=== PATIENT | female | born 1995 | race Caucasian/White ===

== ENCOUNTER → 2016-11-03 | Outpatient (CLI) | payer OTHER | END | disposition home or self-care (01) | LOC: LABWHC1 17:09 | PROVIDERS: ATTEND Pediatrics | DX: R30.0 Dysuria (principal) | CPT/HCPCS: 87491; 87591 ==

== ENCOUNTER → 2021-03-20 | Outpatient (CLI) | payer OTHER ==
[2021-03-21 08:17] LABS: Thyroid Peroxidase Antibodies <9.0 U/mL (0.0-33.0)
== END | disposition home or self-care (01) ==
LOC: LABWHC1 15:38
PROVIDERS: ATTEND Nurse Practitioner Family
DX: L50.0 Allergic urticaria (principal)
CPT/HCPCS: 36415; 82785; 85652; 86003; 86038; 86235; 86376; 86618; 86769

== ENCOUNTER 2023-06-06 12:06 | Outpatient (CLI) | payer OTHER ==
[2023-06-06 12:46] VITALS: BP 123/76; PULSE 107; RESP 18; TEMP 98.7
== END 2023-06-06 13:20 | disposition home or self-care (01) ==
LOC: FBPOP 12:06
PROVIDERS: ATTEND Obstetrics & Gynecology Obstetrics
DX: Z53.9 Procedure and treatment not carried out, unspecified reason (principal)
CPT/HCPCS: 59025; 87636; 99213

== ENCOUNTER 2023-08-10 17:25 | Inpatient (IN) | payer OTHER ==
[2023-08-10] MEDS ORDERED: OXYTOCIN 10 UNIT/ML 1 ML VIAL IM PRN (17:36)
[2023-08-10] MEDS ORDERED: METHYLERGONOVINE 0.2 MG/ML 1 ML AMP IM PRN (17:36)
[2023-08-10] MEDS ORDERED: miSOPROStoL 200 MCG TAB PO PRN (17:36)
[2023-08-10] MEDS ORDERED: TRANEXAMIC 1,000 MG/100ML-NACL 1,000 MG in EMPTY BAG 1 BAG IV PRN (17:36)
[2023-08-10] MEDS ORDERED: CARBOPROST TROMETHAMINE 250 MCG/ML 1 ML AMP IM PRN (17:36)
[2023-08-10] MEDS ORDERED: LIDOCAINE 0.5% (PF) 5 MG/ML (50 ML SDV) SQ PRN (17:36)
[2023-08-10] MEDS ORDERED: TERBUTALINE 1 MG/ML VIAL SQ PRN (17:36)
[2023-08-10] MEDS: LACTATED RINGERS 1,000 ML IV SCH (17:52)
[2023-08-10 17:58] LABS: Basophils % (A) 0 %; Eosinophils % (A) 0 %; HCT 37.9 % (34.0-46.0); HGB 12.5 gm/dL (11.4-16.0); Lymphocytes # (A) 1.7 k/uL (1.0-4.8); Lymphocytes % (A) 10 %; MCH 29.9 pg (25.0-35.0); MCV 90.5 fL (80.0-100.0); Mean Platelet Volume 9.1; Monocytes # (A) 0.8 k/uL (0-1.0); Monocytes % (A) 5 %; Neutrophils # (A) 14.4 k/uL (1.3-7.7); Neutrophils % (A) 84 %; Platelet Count 167 k/uL (150-450); RBC 4.19 m/uL (3.80-5.40); RDW 12.7 % (11.5-15.5); WBC 17.1 k/uL (3.8-10.6)
[2023-08-10] MEDS ORDERED: fentaNYL (PF) 50 MCG/ML 5 ML AMP ONE (18:25)
[2023-08-10] MEDS ORDERED: SODIUM CHLORIDE 0.9% 250 ML BAG ONE (18:25)
[2023-08-10] MEDS ORDERED: ROPIVACAINE 5 MG/ML 30 ML VIAL ONE (18:25)
--- NOTE | 2023-08-10 18:45 | P.HPOB ---
History of Present Illness H&P Date: 08/10/23 Chief Complaint: Leaking of fluid, contractions Ms. Holt is a 27 year old at 38 weeks and 3 days with EDC of 08/21/2023 by LMP consistent with 7 week US who presents to labor and delivery with leakage of fluid and contractions. Her has been uncomplicated. The fetus is estimated to be 7 pounds based on a 35w3d growth US. work-up: blood type O positive, antibody screen negative, rubella immune, VDRL non-reactive, HBsAg negative, HIV negative, HCV Ab negative, gonorrhea negative, chlamydia negative, 1 hour GTT wnl, GBS negative. Obstetric history: 1 SAB Past Medical History Past Medical History: No Reported History History of Any Multi-Drug Resistant Organisms: None Reported Past Surgical History: Orthopedic Surgery Smoking Status: Never smoker Medications and Allergies Home Medications Medication Instructions Recorded Confirmed Type Vit No.179/Iron/Folic 1 tab PO ONCE 08/10/23 08/10/23 History [ Tablet] Allergies Allergy/AdvReac Type Severity Reaction Status Date / Time No Known Allergies Allergy Verified 08/10/23 17:36 Exam Intake and Output 08/10/23 08/10/23 08/10/23 06:59 14:59 22:59 Other: Weight 75.296 kg Focused physical exam is performed. This is a healthy-appearing in no apparent distress. Breathing is non-labored. Abdomen is gravid and non-tender. Cervical exam is 6-7 cm, 90% effacement, -1 station. Membranes grossly ruptured per OB Rn. Extremities non-tender and non-edematous. heart tones are Category I and tocometer is graphing contractions every 2-4 minutes. Results Result Diagrams: 08/10/23 17:46 Abnormal Lab Results - Last 24 Hours (Table) 08/10/23 Range/Units 17:46 WBC 17.1 H (3.8-10.6) k/uL Neutrophils # 14.4 H (1.3-7.7) k/uL Assessment and Plan Assessment: 27 year old at 38 weeks and 3 days with SROM and labor Plan: Admit, clear liquid diet, epidural prn, continuous EFM and tocometer, close monitoring of patient. Anticipate vaginal delivery.
[2023-08-10] MEDS: ROPIVACAINE 225 MG, fentaNYL (PF). 450 MCG in SODIUM CHLORIDE 0.9% 171 ML EPIDURAL ONE (19:40)
[2023-08-11] MEDS ORDERED: SIMETHICONE 80 MG CHEWABLE PO PRN (00:13)
[2023-08-11] MEDS ORDERED: diphenhydrAMINE 50 MG CAP PO PRN (00:13)
[2023-08-11] MEDS ORDERED: LANOLIN CREAM 1 GM TUBE TOPICAL PRN (00:13)
[2023-08-11] MEDS ORDERED: BENZOCAINE/MENTHOL SPRAY 1 GM/SPRAY AEROSOL TOPICAL PRN (00:13)
[2023-08-11] MEDS ORDERED: HYDROCORTISONE 2.5% RECTAL CREAM 30 GM TUBE RECTAL PRN (00:13)
[2023-08-11] MEDS ORDERED: ZOLPIDEM 5 MG TAB PO PRN (00:13)
[2023-08-11] MEDS ORDERED: diphenhydrAMINE 50 MG/ML 1 ML VIAL IVP PRN ×2 (00:13)
--- NOTE | 2023-08-11 00:13 | P.PROBDLV ---
Vaginal Delivery Note - . Vaginal Delivery Note: DATE OF SERVICE: 08/11/2023 PROCEDURE: Normal Vaginal Delivery ATTENDING: Dr. Samantha Newton MD ESTIMATED BLOOD LOSS: 200 mL FINDINGS: VFI, Apgars 8/9. Weight 6 pounds and 11 ounces (3035 grams) PROCEDURE: Ms. Holt is a 27 year old at 38 weeks and 3 days presenting to labor and delivery with spontaneous rupture of membranes and regular uterine contractions. The has been essentially uncomplicated. For further details, please review the admitting H&P. The patient received epidural anesthesia per her request. The patient was completely dilated at 2135. She pushed effectively with Category I to II heart tones, making a small amount of descent with each push. A viable female was delivered at 2359. The was placed on the maternal abdomen and bulb suctioned. The infant was noted to be spontaneously crying. Cord was clamped and cut after a 2-minute delay. The was handed off to the pediatric team. Placenta was delivered whole with gentle cord traction at 0003. Oxytocin was started to facilitate uterine tone. Uterine fundus was found to be firm and below the umbilicus upon fundal massage. Thorough examination of the cervix, vagina, periurethral area, and perineum revealed no lacerations. The patient is stable and allowed to begin the bonding process.
[2023-08-11] MEDS: OXYTOCIN 30 UNITS/500 ML NS 30 UNIT in SALINE 1 500ML.BAG IV SCH (00:20)
[2023-08-11] MEDS: IBUPROFEN 600 MG TAB PO PRN (00:33)
[2023-08-11] MEDS: ACETAMINOPHEN TAB 325 MG TAB PO PRN (08:19)
[2023-08-11] MEDS: SENNOSIDES-DOCUSATE SODIUM 1 EACH TAB PO SCH (08:19)
--- NOTE | 2023-08-11 08:27 | P.PNOBGVD ---
Subjective - Subjective Principal diagnosis: s/p vaginal delivery Interval history: The patient is doing well this morning and had no acute events overnight. She has no complaints this morning. She reports minimal lochia, passing flatus, voiding without difficulty, ambulating, and eating/drinking without nausea or vomiting. She is her without difficulty. She denies chest pain, shortness of breathing, fevers, or chills overnight. She denies pain or swelling in the legs. Patient reports: Reports appetite normal, Reports voiding normally, Reports pain well controlled, Reports ambulating normally : doing well, nursing well Objective - Latest Vital Signs Latest vital signs: Vital Signs Temp Pulse Resp BP Pulse Ox 08/11/23 08:25 98.1 F 84 18 118/74 97 08/11/23 06:15 98.0 F 82 16 105/69 98 08/11/23 02:06 101 H 108/55 08/11/23 01:51 98 109/59 08/11/23 01:36 101 H 117/63 08/11/23 01:21 99.1 F 96 16 112/57 08/11/23 01:06 103 H 16 122/59 08/11/23 00:51 108 H 16 111/56 08/11/23 00:36 101 H 16 112/57 08/11/23 00:21 116 H 16 120/64 08/11/23 00:06 115 H 16 08/10/23 17:35 97.6 F 92 16 130/79 97 Intake and Output 08/10/23 08/11/23 08/11/23 22:59 06:59 14:59 Output Total 450 575 Balance -450 -575 Output: Urine 450 Estimated Blood Loss 400 Output, Quantitative 175 Blood Loss Other: # Voids 1 Weight 75.296 kg - Exam Extremities: Present: normal Abdomen: Present: normal appearance, soft Uterus: Present: normal, firm - Labs Labs: Abnormal Lab Results - Last 24 Hours (Table) 08/10/23 Range/Units 17:46 WBC 17.1 H (3.8-10.6) k/uL Neutrophils # 14.4 H (1.3-7.7) k/uL Assessment and Plan Assessment: 27 year old now PPD#1 s/p normal spontaneous vaginal delivery Plan: Will continue inpatient management at this time. Plan for discharge home tomorrow.
[2023-08-11] MEDS: diphenhydrAMINE 25 MG CAP PO PRN (23:58)
[2023-08-12 00:31] VITALS: TEMP 97.8
[2023-08-12 06:26] LABS: Basophils % (A) 0 %; Eosinophils # (A) 0.2 k/uL (0-0.7); Eosinophils % (A) 2 %; HCT 34.5 % (34.0-46.0); HGB 11.4 gm/dL (11.4-16.0); Lymphocytes # (A) 2.6 k/uL (1.0-4.8); Lymphocytes % (A) 21 %; MCH 30.1 pg (25.0-35.0); MCV 91.4 fL (80.0-100.0); Mean Platelet Volume 9.1; Monocytes # (A) 0.7 k/uL (0-1.0); Monocytes % (A) 5 %; Neutrophils # (A) 8.8 k/uL (1.3-7.7); Neutrophils % (A) 71 %; Platelet Count 153 k/uL (150-450); RBC 3.78 m/uL (3.80-5.40); RDW 12.8 % (11.5-15.5); WBC 12.4 k/uL (3.8-10.6)
[2023-08-12 08:26] VITALS: BP 125/74; PULSE 106; RESP 16
--- NOTE | 2023-08-12 08:41 | P.DS ---
Providers Date of admission: 08/10/23 17:25 Expected date of discharge: 08/12/23 Attending physician: Eden Rock Primary care physician: Stated None Hospital Course: 27 year old now PPD#2 s/p normal spontaneous vaginal delivery. The patient is doing well this morning and had no acute events overnight. She has no complaints this morning. She reports minimal lochia, passing flatus, voiding without difficulty, ambulating, and eating/drinking without nausea or vomiting. Infant doing well at bedside, well. She denies chest pain, shortness of breathing, fevers, or chills overnight. She denies pain or swelling in the legs. restrictions are reviewed with the patient including pelvic rest for 6 weeks. The patient is encouraged to call the office if she experiences any heavy bleeding, foul-smelling discharge, breast complaints, or any if she has any other concerns. She will follow up in the office with Dr. Rock in 6 weeks for exam. All questions are answered. Assessment: 27 year old now PPD#2 s/p Patient Condition at Discharge: Good Plan - Discharge Summary New Discharge Prescriptions: New Ibuprofen [Motrin] 600 mg PO Q6HR PRN #30 tab PRN Reason: Mild Pain (Scale 1 To 3) No Action Vit No.179/Iron/Folic [ Tablet] 1 tab PO ONCE Discharge Medication List Vit No.179/Iron/Folic [ Tablet] 1 tab PO ONCE 08/10/23 [History] Ibuprofen [Motrin] 600 mg PO Q6HR PRN #30 tab 08/12/23 [Rx] Follow up Appointment(s)/Referral(s): Eden Rock DO [Doctor of Osteopathic Medicine] - 09/21/23 1:00 pm Activity/Diet/Wound Care/Special Instructions: Instructions 1. Do not begin any exercise program for 3 weeks. 2. Do not resume sexual relations for 6 weeks or longer if uncomfortable. 3. You may take tub baths or showers at any time. 4. You may use tampons if desired after 6 weeks. 5. Keep any areas repaired with stitches clean and dry. 6. If you are not nursing, wear a good fitting, supportive bra during the day and limit fluid intake for at least 1 week to prevent breast engorgement. 7. Call the office, , within the next week to make appointment for your 6 week checkup if it has not already been made. 8. Report any of the following occurrences to the doctor promptly: a. Heavy, excessive bleeding b. Chills, fever c. Burning or frequency of urination d. Pain or redness and breasts if nursing e. Increasing pain or swelling of vulva (stitches). In addition to the above instructions, the following additional should be followed: 1. No heavy lifting or straining (exercising) until after 6 week checkup. 2. Keep abdominal incision clean and dry: You may wear a dressing if more comfortable. 3. Make office appointment for 2 weeks after delivery date. Discharge Disposition: HOME SELF-CARE
== END 2023-08-12 11:30 | disposition home or self-care (01) | DRG 807 ==
LOC: 4FBP 17:25
PROVIDERS: ADMIT Obstetrics & Gynecology; ATTEND Obstetrics & Gynecology Obstetrics
PROC: 10E0XZZ Delivery of Products of Conception, External Approach (ICD-10-PCS; principal; 2023-08-10)
DX: O80 Encounter for full-term uncomplicated delivery (principal); Z28.310 Unvaccinated for COVID-19; Z3A.38 38 weeks gestation of pregnancy; Z37.0 Single live birth
CPT/HCPCS: 85025; 86850; 86900; 86901